=== PATIENT | male | born 1950 | race Asian ===

== ENCOUNTER 2021-04-13 17:53 | Emergency (ER) | payer MEDICARE, SELFPAY ==
[2021-04-13] VITALS (9 sets, daily range): BP systolic 115–193; BP diastolic 58–77; PULSE 88–110; RESP 17; TEMP 36.6; O2SAT 94–99; BMI 24.2
[2021-04-13 20:42] LABS: Add Manual Diff / Slide Review NO; Basophils Absolute Auto 0 /uL (0-100); Basophils Percent Auto 0.5 % (0-2); Eosinophils Absolute Auto 900 /uL (0-450); Eosinophils Percent Auto 11.1 % (2-4); Hematocrit 43.9 % (41-53); Hemoglobin 15.2 g/dL (13.5-17.5); Lymphocytes Absolute Auto 2000 /uL (1100-4500); Lymphocytes Percent Auto 24.9 % (25-40); Mean Corpuscular HGB Conc 34.7 % (30-36); Mean Corpuscular Hemoglobin 34.8 PG (26-34); Mean Corpuscular Volume 100.3 fL (80-100); Monocytes Absolute Auto 1100 /uL (0-900); Monocytes Percent Auto 13.5 % (3-14); Neutrophils Absolute Auto 4000 /uL (1500-7000); Platelet Count 213 X10^3/uL (150-400); Red Blood Cell Count 4.38 X10^6/uL (4.5-5.9); Red Cell Distribution Width 13.1 % (11.6-14.8)
[2021-04-13 21:04] LABS: Lactate (Lactic Acid) 1.3 mmol/L (0.7-2.1)
[2021-04-13 21:05] LABS: Alanine Aminotransferase 22 IU/L (<50); Albumin 3.6 g/dL (3.5-5.0); Albumin Globulin Ratio 1.3 (1.0-2.8); Alkaline Phosphatase 89 U/L (38-126); Aspartate Aminotransferase 26 IU/L (17-59); BUN Creatinine Ratio 19.5 (6-22); Bilirubin Total 0.3 mg/dL (0.2-1.3); Blood Urea Nitrogen 23 mg/dL (9-20); Calcium 8.6 mg/dL (8.4-10.2); Carbon Dioxide 28 mmol/L (22-32); Chloride 100 mmol/L (98-107); Estimated Glomerular Filt Rate > 60.0 mL/min (>60); Globulin 2.7 g/dL (1.7-4.1); Glucose 187 mg/dL (80-110); HEMOLYSIS < 15 (0-50); Sodium 133 mmol/L (137-145); Total Protein 6.3 g/dL (6.3-8.2)
[2021-04-13 21:22] LABS: Procalcitonin 0.07 ng/mL (<0.5)
[2021-04-13] MEDS: methylPREDNISolone 125 MG/2 ML VIAL IV (21:45)
[2021-04-13] MEDS: cefTRIAXone 2,000 MG in SODIUM CHLORIDE 0.9% 100 ML 200 ML IV (21:45)
--- NOTE | 2021-04-13 22:40 | ED_ITS ---
HPI - Skin/Abscess/Foreign Bdy General Chief complaint: Skin/Abscess/Foreign Body Stated complaint: swollen, painful legs and rash all over Time Seen by Provider: 04/13/21 20:39 Source: patient and family Mode of arrival: Ambulatory History of Present Illness HPI narrative: Patient is a 70-year-old male who presents with ongoing rash progressively getting worse since his flu shot February 17. It got significantly worse over last 10 days. It is pruritic scaly in nature it has become erythematous story denies fever or chills. His left leg is quite erythematous. He complains of left leg pain extremities being swollen and weeping. No pain just significant itching. says that he has been resistant to take any medication. To does not take medicine daily. Related Data Previous Rx's Medication Instructions Recorded doxycycline hyclate 100 mg capsule 100 mg PO BID #20 cap 04/13/21 prednisone 20 mg tablet 40 mg PO DAILY #10 tab 04/13/21 Allergies Allergy/AdvReac Type Severity Reaction Status Date / Time naproxen [From Aleve] Allergy Rash Verified 04/13/21 18:07 Review of Systems Review of Systems Narrative: GENERAL: Denies chills, fatigue, malaise, fever, sweats, travel HEENT: Denies sinus pain, ear pain, sore throat, difficulty swallowing, neck pain RESPIRATORY: Denies dyspnea, cough, wheezing, hemoptysis, sputum. CARDIOVASCULAR: Denies chest pain, palpitations, orthopnea, edema GASTROINTESTINAL: Denies nausea, vomiting, abdominal pain, diarrhea, constipation, melena. : Denies dysuria, frequency, incontinence, hematuria, urinary retention, flank pain. MUSCULOSKELETAL: Denies weakness, joint pain, or bony pain SKIN: She HPI NEUROLOGIC: Denies weakness, dizziness, headache, numbness, change in speech, confusion PSYCHIATRIC: No concerning psychosocial issues. 12 point review of systems is negative except for those stated above and HPI Patient History Social History Smoking Status: Current every day smoker Smoking Status: Current every day smoker alcohol intake frequency: a few times a week Substance Use Type: does not use Exam Initial Vital Signs Initial Vital Signs: Vital Signs Temperature 97.9 F 04/13/21 18:05 Pulse Rate 110 H 04/13/21 18:05 Respiratory Rate 17 04/13/21 18:05 Blood Pressure 193/77 H 04/13/21 18:05 Pulse Oximetry 98 04/13/21 18:05 GENERAL: Patient is a 70-year-old male appears uncomfortable but in no acute distress. HEENT: Head atraumatic,EOMI, pupils reactive, face symmetric, moist mucous membranes CARDIOVASCULAR: Regular rate and rhythm without murmurs, rubs or gallops. RESPIRATORY: Breath sounds equal bilaterally, no wheezes rales or rhonchi. ABDOMEN: Soft, nontender. Normoactive bowel sounds all 4 quadrants. No guarding or rebound. EXTREMITIES: Normal range of motion, no clubbing or edema. Neurovascularly intact NEUROLOGICAL: Alert and oriented x4.Normal gait and speech. SKIN: Diffuse rash multiple scaly plaque like lesions no abscesses now starting on his upper lip but not involving oral mucosa left leg thigh region is quite erythematous but does not involve the genitalia, his on his abdomen and back as well. Course Orders Ordered: Discontinued Medications Ceftriaxone Sodium 2,000 mg/ (Sodium Chloride) 100 mls @ 200 mls/hr IV NOW ONE Stop: 04/13/21 21:20 Last Infusion: 04/13/21 22:24 Dose: 0 mls/hr Documented by: Admin: 04/13/21 21:45 Dose: 200 mls/hr Documented by: NINA Methylprednisolone (Methylprednisolone 125 Mg/2 Ml Vial) 125 mg IV NOW ONE Stop: 04/13/21 21:20 Last Admin: 04/13/21 21:45 Dose: 125 mg Documented by: NINA Vital Signs Vital signs: Vital Signs - 8 hr 04/13/21 22:30 Pulse Rate 93 H Blood Pressure 115/58 L Pulse Oximetry 94 MDM - Skin/Abscess/Foreign Bdy Lab Data Result diagrams: 04/13/21 20:25 04/13/21 20:25 Labs: Lab Results 04/13/21 04/13/21 04/13/21 Range/Units 20:25 20:25 20:25 WBC 8.0 (4.5-11.0) X10^3/uL RBC 4.38 L (4.5-5.9) X10^6/uL Hgb 15.2 (13.5-17.5) g/dL Hct 43.9 (41-53) % MCV 100.3 H (80-100) fL MCH 34.8 H (26-34) PG MCHC 34.7 (30-36) % RDW 13.1 (11.6-14.8) % Plt Count 213 (150-400) X10^3/uL Neut % (Auto) 50.0 (50-75) % Lymph % (Auto) 24.9 L (25-40) % Robertson % (Auto) 13.5 (3-14) % Eos % (Auto) 11.1 H (2-4) % Baso % (Auto) 0.5 (0-2) % Neut # (Auto) 4000 (5671-8688) /uL Lymph # (Auto) 2000 (4230-0073) /uL Robertson # (Auto) 1100 H (0-900) /uL Eos # (Auto) 900 H (0-450) /uL Baso # (Auto) 0 (0-100) /uL Sodium 133 L (137-145) mmol/L Potassium 4.0 (3.4-5.1) mmol/L Chloride 100 (98-107) mmol/L Carbon Dioxide 28 (22-32) mmol/L BUN 23 H (9-20) mg/dL Creatinine 1.18 (0.66-1.25) mg/dL Estimated GFR > 60.0 (>60) mL/min BUN/Creatinine Ratio 19.5 (6-22) Glucose 187 H (80-110) mg/dL Lactate 1.3 (0.7-2.1) mmol/L Calcium 8.6 (8.4-10.2) mg/dL Total Bilirubin 0.3 (0.2-1.3) mg/dL AST 26 (17-59) IU/L ALT 22 (<50) IU/L Alkaline Phosphatase 89 (38-126) U/L Total Protein 6.3 (6.3-8.2) g/dL Albumin 3.6 (3.5-5.0) g/dL Globulin 2.7 (1.7-4.1) g/dL Albumin/Globulin Ratio 1.3 (1.0-2.8) Procalcitonin 0.07 (<0.5) ng/mL MDM Narrative Medical decision making narrative: Rash has been ongoing for awhile, patient clinically looks okay not septic blood work is overall reassuring however he has a diffuse rash possible lichen planus like rash certainly some of it does look like it is now infected and cellulitic especially on the left leg. He is given 1 dose of Solu-Medrol and Rocephin in the ER. There is significant bed shortage in the state at this time I think it is reasonable to outpatient trial of antibiotics and steroids see how he does. If symptoms worsen return to the emergency department. Recommend outpatient dermatology consultation Discharge Plan Departure Patient Disposition: Home Clinical Impression: Cellulitis Instructions: DI for Cellulitis -- Adult Activity Restrictions/Additional Instructions: *You have been diagnosed with rash, cellulitis *What to do: At this time please monitor closely. *Continue to take medications as directed Prednisone 40 mg once a day for 5 days Doxycycline 100 mg twice a day for 10 days *Follow up with your primary care provider in 2-3 days *Return to ER if you should have increasing redness, difficulty breathing tongue swelling lip swelling or any new, worsening or concerning symptoms Prescriptions: New doxycycline hyclate 100 mg capsule 100 mg PO BID Qty: 20 0RF prednisone 20 mg tablet 40 mg PO DAILY Qty: 10 0RF
--- NOTE | 2021-04-13 23:34 | PC.NURSE ---
1930 Patient had previously reported rash to [facility]. Upon placing him in a gown it was noted that rash is all over body.
== END 2021-04-13 23:35 | disposition home or self-care (01) ==
PROVIDERS: Emergency Medicine; Emergency Provider Emergency Medicine
DX: L03.116 Cellulitis of left lower limb (principal); R21 Rash and other nonspecific skin eruption
CPT/HCPCS: 36415; 80053; 83605; 84145; 85025; 87040; 96365; 96375; 99284; J0696; J2930